=== PATIENT | male | born 1955 | race Caucasian/White ===

== ENCOUNTER 2020-12-14 10:08 | Emergency (ER) | payer MEDICARE, OTHER ==
[~2020-12-14 10:08] MED LIST: NORCO 5-325 TA1 EACH PO; VITAMIN D325 MCG PO
[2020-12-14 11:50] LABS: BASOPHIL 0.6 % (0-2); EOSINOPHIL 4.4 % (0-7); HCT 39.9 % (42.0-52.0); LYMPHOCYTE 16.8 % (15-48); MCH 28.3 pg (25.0-31.0); MCHC 32.6 g/dL (32.0-36.0); MCV 86.9 fL (78.0-100.0); MONOCYTE 9.9 % (0-12); MPV 9.3 fL (6.0-9.5); NRBC 0; PLT 327 K/uL (150-400); RBC 4.59 M/uL (4.70-6.00); RDW 13.4 % (11.5-14.0)
[2020-12-14] MEDS ORDERED: HYDROCODON-ACE1 EAC2 PO (12:13)
== END 2020-12-14 12:18 | disposition home or self-care (01) ==
LOC: FER 10:08
PROVIDERS: Emergency Medicine
DX: S42.302A Unspecified fracture of shaft of humerus, left arm, initial encounter for closed fracture (principal); W19.XXXA Unspecified fall, initial encounter; Y92.008 Other place in unspecified non-institutional (private) residence as the place of occurrence of the external cause
CPT/HCPCS: 36415; 73060; 76881-LT; 85025

== ENCOUNTER 2020-12-27 22:09 | Emergency (ER) | payer MEDICARE, OTHER ==
[~2020-12-27 22:09] MED LIST changes: +HYDROCODON-ACE1 EAC2 PO
== END 2020-12-28 02:36 | disposition home or self-care (01) ==
LOC: FER 22:09
DX: R20.2 Paresthesia of skin (principal)
CPT/HCPCS: 99283

== ENCOUNTER 2021-03-18 12:24 | Inpatient (IN) | payer MEDICARE, OTHER ==
[~2021-03-18] VITALS: Ht 182.9 cm; Wt 99.8 kg
[2021-03-18 12:56] LABS: BASOPHIL 4.8 % (0-2); EOSINOPHIL 0 % (0-7); HCT 26.2 % (42.0-52.0); HGB 8.8 g/dl (13.2-18.0); MCH 25.8 pg (25.0-31.0); MCHC 33.6 g/dL (32.0-36.0); MCV 76.8 fL (78.0-100.0); MONOCYTE 7.1 % (0-12); MPV 10.6 fL (6.0-9.5); NEUTROPHIL 4.7 % (41-80); NRBC 0; RBC 3.41 M/uL (4.70-6.00); RDW 17.8 % (11.5-14.0)
[2021-03-18 13:14] LABS: LACTIC ACID 1.6 mmol/L (0.4-1.9)
[2021-03-18 13:16] LABS: ALBUMIN 2.3 g/dL (3.4-5.0); BILIRUBIN - TOTAL 0.9 mg/dL (0.2-1.0); BUN/CREAT RATIO (CALC) 21.2 RATIO; CREATININE 0.8 mg/dL (0.67-1.17); GLOBULIN (CALCULATION) 4.2 g/dL; PLT 52 K/uL (150-400); POTASSIUM 4.3 mmol/L (3.5-5.1); TOTAL PROTEIN 6.5 g/dL (6.4-8.2); WBC 0.4 K/uL (4.0-10.5)
[2021-03-18 13:22] LABS: BILIRUBIN NEGATIVE (NEGATIVE); BLOOD 2+ Ery/uL (NEGATIVE); CLARITY CLEAR (CLEAR); COLOR YELLOW (YELLOW); GLUCOSE (U) TRACE mg/dL (NORMAL); LEUKOCYTES NEGATIVE Leu/uL (NEGATIVE); NITRITE NEGATIVE (NEGATIVE); PROTEIN 1+ mg/dL (NEGATIVE); SPECIFIC GRAVITY 1.025 (1.001-1.030); pH 5.5 (5.0-9.0)
[2021-03-18 13:29] LABS: AMORPHOUS URATES CRYSTALS MODERATE; BACTERIA TRACE; SQUAMOUS EPITHELIAL CELLS RARE
[2021-03-18 13:30] LABS: MUCOUS MODERATE
[2021-03-18 16:11] LABS: CORONAVIRUS 2019 SARS-COV-2 NEGATIVE (NEGATIVE); INFLUENZA A NAA NEGATIVE (NEGATIVE)
[2021-03-19 04:58] LABS: BASOPHIL 3.4 % (0-2); EOSINOPHIL 0 % (0-7); HCT 21.4 % (42.0-52.0); HGB 7.2 g/dl (13.2-18.0); LYMPHOCYTE 75.9 % (15-48); MCH 26.1 pg (25.0-31.0); MCHC 33.6 g/dL (32.0-36.0); MCV 77.5 fL (78.0-100.0); MONOCYTE 6.9 % (0-12); MPV 10.8 fL (6.0-9.5); NRBC 0; RBC 2.76 M/uL (4.70-6.00); RDW 17.7 % (11.5-14.0)
[2021-03-19 05:04] LABS: PLT 22 K/uL (150-400)
[2021-03-19 05:05] LABS: NEUTROPHIL 6.9 % (41-80); WBC 0.3 K/uL (4.0-10.5)
[2021-03-19 06:15] LABS: BILIRUBIN - TOTAL 0.8 mg/dL (0.2-1.0); BUN/CREAT RATIO (CALC) 21.4 RATIO; CREATININE 0.7 mg/dL (0.67-1.17); GLOBULIN (CALCULATION) 3.7 g/dL; POTASSIUM 3.7 mmol/L (3.5-5.1); TOTAL PROTEIN 5.7 g/dL (6.4-8.2)
[2021-03-20 04:40] LABS: BASOPHIL 1.9 % (0-2); EOSINOPHIL 1.9 % (0-7); HCT 19.9 % (42.0-52.0); MCH 25.6 pg (25.0-31.0); MCHC 32.7 g/dL (32.0-36.0); MCV 78.3 fL (78.0-100.0); MONOCYTE 5.8 % (0-12); NRBC 0; RBC 2.54 M/uL (4.70-6.00); RDW 17.7 % (11.5-14.0)
[2021-03-20 04:42] LABS: HGB 6.5 g/dl (13.2-18.0)
[2021-03-20 04:43] LABS: NEUTROPHIL 38.5 % (41-80); PLT 9 K/uL (150-400); WBC 0.5 K/uL (4.0-10.5)
[2021-03-20 06:02] LABS: BUN/CREAT RATIO (CALC) 17.4 RATIO; CREATININE 0.69 mg/dL (0.67-1.17); MAGNESIUM 1.8 mg/dL (1.8-2.4); POTASSIUM 3.4 mmol/L (3.5-5.1)
[2021-03-21 07:22] LABS: BASOPHIL 1.6 % (0-2); EOSINOPHIL 0.8 % (0-7); HCT 19.1 % (42.0-52.0); LYMPHOCYTE 28.1 % (15-48); MCH 25.9 pg (25.0-31.0); MCV 78.6 fL (78.0-100.0); MPV 11.9 fL (6.0-9.5); NEUTROPHIL 54.7 % (41-80); NRBC 0; PLT 30 K/uL (150-400); RBC 2.43 M/uL (4.70-6.00); RDW 17.6 % (11.5-14.0)
[2021-03-21 07:31] LABS: HGB 6.3 g/dl (13.2-18.0); WBC 1.3 K/uL (4.0-10.5)
[2021-03-21 07:35] LABS: ALBUMIN 1.8 g/dL (3.4-5.0); BILIRUBIN - TOTAL 0.5 mg/dL (0.2-1.0); BUN/CREAT RATIO (CALC) 13.6 RATIO; CREATININE 0.66 mg/dL (0.67-1.17); POTASSIUM 3.6 mmol/L (3.5-5.1); TOTAL PROTEIN 4.8 g/dL (6.4-8.2)
[2021-03-22 06:28] LABS: BASOPHIL 0.9 % (0-2); EOSINOPHIL 0.3 % (0-7); HCT 22.8 % (42.0-52.0); HGB 7.6 g/dl (13.2-18.0); LYMPHOCYTE 12.9 % (15-48); MCH 26.4 pg (25.0-31.0); MCHC 33.3 g/dL (32.0-36.0); MCV 79.2 fL (78.0-100.0); MONOCYTE 8.3 % (0-12); MPV 11.5 fL (6.0-9.5); NEUTROPHIL 72.7 % (41-80); NRBC 0; PLT 41 K/uL (150-400); RBC 2.88 M/uL (4.70-6.00); RDW 17.6 % (11.5-14.0)
[2021-03-22 06:43] LABS: WBC 3.5 K/uL (4.0-10.5)
[2021-03-22 07:11] LABS: ALKALINE PHOSHATASE 56 U/L (46-116); ALT 33 U/L (16-63); AST <5 U/L (15-37); BILIRUBIN - TOTAL 0.5 mg/dL (0.2-1.0); BUN 9 mg/dL (7-18); BUN/CREAT RATIO (CALC) 14.3 RATIO; CHLORIDE 106 mmol/L (98-107); CO2 (BICARBONATE) 24 mmol/L (21-32); CREATININE 0.63 mg/dL (0.67-1.17); GLOBULIN (CALCULATION) 3.2 g/dL; GLUCOSE 109 mg/dL (74-106); MAGNESIUM 1.7 mg/dL (1.8-2.4); PHOSPHORUS 1.6 mg/dL (2.6-4.7); POTASSIUM 3.6 mmol/L (3.5-5.1); TOTAL PROTEIN 5.2 g/dL (6.4-8.2)
[2021-03-22] MEDS ORDERED: AUGMENTIN 875-1 EACH PO (15:32)
--- NOTE | 2021-03-22 16:14 | NUR ---
PATIENT DISCHARGED BY WHEELCHAIR TO FRONT DOOR. IV AND MONITOR DCD. DISCHARGE INSTRUCTIONS GIVEN AND VERBALIZED UNDERSTANDING.
== END 2021-03-22 16:05 | disposition home or self-care (01) | DRG 808 ==
LOC: FER 12:24 → FMS 15:05
PROVIDERS: Internal Medicine; Nurse Practitioner; ADMIT Internal Medicine
PROC: 30233R1 Transfusion of Nonautologous Platelets into Peripheral Vein, Percutaneous Approach (ICD-10-PCS; principal; 2021-03-20)
PROC: 30233N1 Transfusion of Nonautologous Red Blood Cells into Peripheral Vein, Percutaneous Approach (ICD-10-PCS; 2021-03-21)
PROC: 30233N1 Transfusion of Nonautologous Red Blood Cells into Peripheral Vein, Percutaneous Approach (ICD-10-PCS; 2021-03-22)
DX: D70.1 Agranulocytosis secondary to cancer chemotherapy (principal); I21.A1 Myocardial infarction type 2; A41.9 Sepsis, unspecified organism; C49.9 Malignant neoplasm of connective and soft tissue, unspecified; K57.32 Diverticulitis of large intestine without perforation or abscess without bleeding; D61.810 Antineoplastic chemotherapy induced pancytopenia; T45.1X5A Adverse effect of antineoplastic and immunosuppressive drugs, initial encounter; R50.81 Fever presenting with conditions classified elsewhere; Z20.822 Contact with and (suspected) exposure to COVID-19; E87.6 Hypokalemia; Z98.890 Other specified postprocedural states; Z86.718 Personal history of other venous thrombosis and embolism
CPT/HCPCS: 36415; 36430; 71045; 73200; 80048; 80053; 81001; 83605; 83735; 84100; 84145; 84484; 85025; 86850; 86900; 86901; 86922; 87040; 87045; 87046; 93005; J1447; J2543; J3370; J7030; J7040; J7050; P9016; P9035; Q0164; U0002